=== PATIENT | female | born 1975 | race Hispanic/Latino ===

== ENCOUNTER 2017-06-23 14:02 | Emergency (ER) | payer OTHER ==
[2017-06-23 14:02] VITALS: BMI 45.6
[2017-06-23 14:11] VITALS: TEMP 98.5
--- NOTE | 2017-06-23 14:18 | ED PDOC ---
Arrival/HPI - General Chief Complaint: Back Pain Time Seen by Provider: 06/23/17 14:17 Historian: Patient - History of Present Illness Narrative History of Present Illness (Text): 06/23/17 14:17 42 y/o female, pmh including asthma/dm/thyroid disease, nkda, c/o lower back pain x 2 days with no fall or trauma. Aching pain, aggravated by position and movement, no pain medication taken at home, no urinary symptoms, no hematuria or flank pain, no nausea or vomiting, no fever or chills, no night sweat, no other medical or psychological complaints. Past Medical History - Provider Review Nursing Documentation Reviewed: Yes - Infectious Disease Hx of Infectious Diseases: None - Tetanus Immunization Tetanus Immunization: Unknown - Cardiac Hx Cardiac Disorders: Yes Hx Hypertension: Yes Hx Peripheral Edema: Yes - Pulmonary Hx Respiratory Disorders: Yes (has nebulizer at home) Hx Asthma: Yes Hx Bronchitis: Yes - Neurological Hx Neurological Disorder: No - HEENT Hx HEENT Disorder: Yes (wear rx glassess) - Renal Hx Renal Disorder: No - Endocrine/Metabolic Hx Diabetes Mellitus Type 2: No Hx Hypothyroidism: Yes - Hematological/Oncological Hx Blood Disorders: Yes Hx Anemia: Yes - Integumentary Hx Dermatological Disorder: Yes Hx Cellulitis: Yes (legs) - Musculoskeletal/Rheumatological Hx Musculoskeletal Disorders: Yes Hx Fractures: Yes (r ankle) - Gastrointestinal Hx Gastrointestinal Disorders: No - Genitourinary/Gynecological Hx Genitourinary Disorders: Yes (ELECTIVE ,D&C) - Psychiatric Hx Psychophysiologic Disorder: No Hx Anxiety: No Hx Bipolar Disorder: No Hx Depression: No Hx Emotional Abuse: No Hx Hallucinations: No Hx Panic Disorder: No Hx Post Traumatic Stress Disorder: No Hx Psychosis: No Hx Physical Abuse: No Hx Schizophrenia: No Hx Sexual Abuse: No Hx Substance Use: Yes (hx heroin use) - Past Surgical History Past Surgical History: Non-Contributing - Surgical History Other/Comment: Nose surgery - Anesthesia Hx Anesthesia: Yes Hx Anesthesia Reactions: No Hx Malignant Hyperthermia: No - Suicidal Assessment Feels Threatened In Home Enviroment: No Family/Social History - Physician Review Nursing Documentation Reviewed: Yes Family/Social History: Unknown Family HX Smoking Status: Heavy Smoker > 10 Cigarettes Daily Hx Alcohol Use: No Hx Substance Use: Yes (hx heroin use) Substance used: clean 3.5 years Hx Substance Use Treatment: No Allergies/Home Meds Allergies/Adverse Reactions: Allergies No Known Allergies Allergy (Verified 12/24/16 13:51) Home Medications: Home Meds Medication Instructions Recorded Confirmed Gabapentin [Neurontin] 300 mg PO BID 12/24/16 06/23/17 Levothyroxine [Synthroid] 150 mcg PO DAILY 12/24/16 06/23/17 Review of Systems - Review of Systems Constitutional: absent: Fatigue, Fevers Eyes: absent: Vision Changes ENT: absent: Hearing Changes Respiratory: absent: SOB, Cough Cardiovascular: absent: Chest Pain Gastrointestinal: absent: Abdominal Pain, Vomiting Musculoskeletal: Back Pain. absent: Arthralgias, Neck Pain, Joint Swelling, Myalgias Skin: absent: Rash, Pruritis Neurological: absent: Headache, Dizziness Physical Exam Vital Signs Reviewed: Yes Vital Signs Temp Pulse Resp BP Pulse Ox 06/23/17 16:40 75 18 122/80 97 06/23/17 16:39 79 18 118/79 95 06/23/17 15:36 95 06/23/17 15:16 83 17 120/84 92 L 06/23/17 14:11 98.5 F 88 16 118/86 93 L Temperature: Afebrile Blood Pressure: Normal Pulse: Regular Respiratory Rate: Normal Appearance: Positive for: Well-Appearing, Non-Toxic Pain Distress: Moderate Mental Status: Positive for: Alert and Oriented X 3 - Systems Exam Head: Present: Atraumatic, Normocephalic Pupils: Present: PERRL Extroacular Muscles: Present: EOMI Conjunctiva: Present: Normal Mouth: Present: Moist Mucous Membranes Pharnyx: Present: Normal. No: ERYTHEMA, EXUDATE, TONSILS ENLARGED Neck: Present: Normal Range of Motion. No: MIDLINE TENDERNESS Respiratory/Chest: Present: Clear to Auscultation, Good Air Exchange. No: Respiratory Distress, Accessory Muscle Use Cardiovascular: Present: Regular Rate and Rhythm, Normal S1, S2. No: Murmurs Abdomen: Present: Normal Bowel Sounds. No: Tenderness, Distention, Peritoneal Signs Back: Present: Normal Inspection, Other (Thoracic to LS spine: +spasm noted on the rt. paraspinal of lower thoracic and upper lumbar region, no midline tenderness or step off, FROM without limitation, sensation intact, motor 5/5, no saddling gait. ). No: CVA Tenderness, Midline Tenderness, Pain with Leg Raise, Decubitus Ulcer Upper Extremity: Present: Normal Inspection. No: Cyanosis, Edema Lower Extremity: Present: Normal Inspection. No: Edema Neurological: Present: GCS=15, Speech Normal, Motor Func Grossly Intact, Gait Normal, Memory Normal Skin: Present: Warm, Dry, Normal Color. No: Rashes Psychiatric: Present: Alert, Oriented x 3, Normal Insight, Normal Concentration Medical Decision Making ED Course and Treatment: 06/23/17 14:17 -ua -Room air saturation is low, no cardiopulmonary complaints and not taking deep breath with poor positioning due to the back movement, will recheck -Pt. is is not a candidate for the PERC criteria -Based on the Well's criteria: 1.5 points Low risk group: 1.3% chance of PE in an ED population. Another study assigned scores 4 as PE Unlikely and had a 3% incidence of PE. -toradol/lidoderm as patient refused narcotics. -Clinically suspecting the DVT or PE is low as the pain is positional, will treat the pain and reassess 06/23/17 17:08 -I explained to the patient to return to the ER for any new or worsening signs or symptoms. I have all the answers for the patient and she was given the opportunities to ask question as well. -UA show +UTI, no cva tenderness or pelvic pain. -Pt. is vitally stable. -Pain well controlled and resolved with the NSAID as clinically this is unlikely PE, expressed my concern with the patient as well which she doesn't think this is PE, and there is no leg swelling, wants to be discharged home to see her own pmd DR. Jacobo tomorrow, request to be discharged home, will discharge home since the room air saturation is within normal limit when standing up on room air with no cardiopulmonary/neurological complaints. -Discharge home with mobic, flexeril, macrobid, lidoderm patch, follow up with your own pmd within 2 days, return to the ER for any new or worsening signs or symptoms. - Lab Interpretations Lab Results: Lab Results 06/23/17 14:30: Urine Color Yellow, Urine Appearance Sl cloudy, Urine pH 7.0, Ur Specific [place] 1.020, Urine Protein Trace H, Urine Glucose (UA) Negative, Urine Ketones Trace H, Urine Blood Negative, Urine Nitrate Negative, Urine Bilirubin Negative, Urine Urobilinogen 1.0 H, Ur Leukocyte Esterase Trace H, Urine RBC 0 - 2, Urine WBC 0 - 2, Ur Epithelial Cells 10 - 12, Urine Bacteria Mod, Urine HCG, Qual Negative I have reviewed the lab results: Yes Interpretation: Abnormal lab values (+UTI) - Medication Orders Current Medication Orders: Discontinued Medications Cyclobenzaprine HCl (Flexeril) 10 mg PO STAT STA Stop: 06/23/17 14:51 Last Admin: 06/23/17 15:09 Dose: 10 mg Ketorolac Tromethamine (Toradol) 60 mg IM STAT STA Stop: 06/23/17 14:51 Last Admin: 06/23/17 15:09 Dose: 60 mg Lidocaine (Lidoderm) 1 ea TD DAILY HENNA Last Admin: 06/23/17 15:09 Dose: 1 ea - PA / MANAGER FLOOR / Resident Statement / has reviewed & agrees with the documentation as recorded. Disposition/Present on Arrival - Present on Arrival Any Indicators Present on Arrival: No History of DVT/PE: Yes History of Uncontrolled Diabetes: No Urinary Catheter: No History of Decub. Ulcer: No History Surgical Site Infection Following: None - Disposition Have Diagnosis and Disposition been Completed?: Yes Diagnosis: Back spasm, UTI (urinary tract infection) Disposition: HOME/ ROUTINE Disposition Time: 15:04 Patient Plan: Discharge Condition: GOOD Additional Instructions: -Discharge home with mobic, flexeril, macrobid, lidoderm patch, follow up with your own pmd within 2 days, return to the ER for any new or worsening signs or symptoms. Prescriptions: Cyclobenzaprine [Cyclobenzaprine HCl] 10 mg PO TID PRN #30 tab PRN Reason: Other Lidocaine 5% [Lidoderm] 1 patch TOP DAILY #14 patch Meloxicam [Mobic] 15 mg PO DAILY PRN #14 tab PRN Reason: Other Nitrofurantoin Macrocrystals [Macrobid] 100 mg PO BID #14 cap Referrals: [facility] Graciela Waddell, [Non-Staff] - Follow up with primary Dejah Yu MD [Staff Provider] - Follow up with primary [facility] at [facility] [place], [place] [Outside] - Follow up with primary Forms: [employer] (Maltese), WORK NOTE
[2017-06-23 14:37] LABS: URINE BILIRUBIN NEGATIVE (NEGATIVE); URINE BLOOD NEGATIVE (NEGATIVE); URINE GLUCOSE (UA) NEGATIVE (NEGATIVE); URINE LEUKOCYTE ESTERASE TRACE Leu/uL (NEGATIVE); URINE NITRATE NEGATIVE (NEGATIVE); URINE PROTEIN TRACE mg/dL (<30 mg/dL)
[2017-06-23 14:48] LABS: URINE APPEARANCE SL CLOUDY (CLEAR); URINE COLOR YELLOW (YELLOW); URINE RBC 0 - 2 /hpf (0-2); URINE WBC 0 - 2 /hpf (0-6)
[2017-06-23 14:49] LABS: URINE BACTERIA MOD (NEG)
[2017-06-23] MEDS ORDERED: Lidocaine 5% Patch TD SCH (15:00)
[2017-06-23 15:11] LABS: HCG,QUALITATIVE URINE NEGATIVE (NEGATIVE)
[2017-06-23 16:40] VITALS: RESP 18
[2017-06-23 16:58] VITALS: BP 122/80; PULSE 75; O2SAT 97
== END 2017-06-23 17:08 | disposition home or self-care (01) ==
LOC: ED 14:02
DX: N39.0 Urinary tract infection, site not specified (principal); M62.830 Muscle spasm of back; I10 Essential (primary) hypertension; E03.9 Hypothyroidism, unspecified
CPT/HCPCS: 81001; 84703; 87086; 96372; 99285; J1885

== ENCOUNTER 2018-07-04 18:50 | Observation (INO) | payer MEDICAID ==
[2018-07-04 18:51] VITALS: BMI 47.0
--- NOTE | 2018-07-04 19:29 | ED PDOC ---
Arrival/HPI - General Historian: Patient - History of Present Illness Time/Duration: < week Symptom Onset: Gradual Symptom Course: Unchanged, Worsening Quality: Aching, Burning Activities at Onset: Rest Context: Exertion <Burak Daugherty - Last Filed: 07/04/18 22:02> <Manny Hopkins - Last Filed: 07/04/18 22:04> - General Chief Complaint: Lower Extremity Problem/Injury Time Seen by Provider: 07/04/18 19:11 - History of Present Illness Narrative History of Present Illness (Text): 07/04/18 19:28 Patient is a 43 year old female with PMH of asthma, cellulitis, hypothyroidism, PVD, WAQAR, and [place] [facility] [place] who presents to the ED with a red rash on the distal left lower extremity, from the calf down to the ankle. Patient states she first noticed swelling in her feet about a week ago and her rash developed 2 days ago. Patient states her leg looks the same as it did when she was diagnosed with cellulitis in the past. Patient took her prescribed Lasix 40mg once daily to try to alleviate the swelling and redness in her leg but the lasix has not helped. Patient admitted to chills, dyspnea on exertion (which is chronic), swelling and warmth in her left lower leg. Patient denied nausea, vomiting, dyspnea at rest, or chest pain. Patient denies trauma to the leg or recent travel but admits to sitting a lot during the day. (Burak Daugherty) Past Medical History - Provider Review Nursing Documentation Reviewed: Yes - Travel History Have you recently traveled outside [place] w/in the past 3 mons?: No - Infectious Disease Hx of Infectious Diseases: None - Tetanus Immunization Tetanus Immunization: Unknown - Cardiac Hx Hypertension: Yes Hx Peripheral Edema: Yes - Pulmonary Hx Asthma: Yes Hx Bronchitis: Yes - Neurological HX Cerebrovascular Accident: No Hx Seizures: No - HEENT Hx HEENT Disorder: Yes (wear rx glassess) - Renal Hx Renal Disorder: No - Endocrine/Metabolic Hx Hypothyroidism: Yes - Hematological/Oncological Hx Anemia: Yes - Integumentary Hx Dermatological Disorder: Yes Hx Cellulitis: Yes (legs) - Musculoskeletal/Rheumatological Hx Falls: No Hx Fractures: Yes (r ankle) - Gastrointestinal Hx Gastrointestinal Disorders: No - Genitourinary/Gynecological Hx Sexually Transmitted Diseases: No - Psychiatric Hx Anxiety: No Hx Bipolar Disorder: No Hx Depression: No Hx Post Traumatic Stress Disorder: No Hx Schizophrenia: No Hx Substance Use: Yes - Past Surgical History Past Surgical History: Non-Contributing - Surgical History Other/Comment: Nose surgery - Anesthesia Hx Anesthesia: Yes Hx Anesthesia Reactions: No Hx Malignant Hyperthermia: No - Suicidal Assessment Feels Threatened In Home Enviroment: No <Burak Daugherty - Last Filed: 07/04/18 22:02> Family/Social History - Physician Review Nursing Documentation Reviewed: Yes Family/Social History: CVA/TIA (maternal grandmother), Hypertension (father), CAD/[place] (father) Smoking Status: Heavy Smoker > 10 Cigarettes Daily Hx Alcohol Use: No Hx Substance Use: Yes Substance used: clean 3.5 years Hx Substance Use Treatment: No <Burak Daugherty - Last Filed: 07/04/18 22:02> Allergies/Home Meds <Burak Daugherty - Last Filed: 07/04/18 22:02> <Manny Hopkins - Last Filed: 07/04/18 22:04> Allergies/Adverse Reactions: Allergies No Known Allergies Allergy (Verified 05/16/18 16:31) Home Medications: Home Meds Medication Instructions Recorded Confirmed Gabapentin [Neurontin] 300 mg PO TID 12/24/16 05/16/18 Levothyroxine [Synthroid] 150 mcg PO DAILY 12/24/16 05/16/18 Furosemide [Lasix] 40 mg PO DAILY 05/16/18 05/16/18 Review of Systems - Physician Review All systems were reviewed & negative as marked: Yes - Review of Systems Constitutional: absent: Fevers, Night Sweats Eyes: absent: Vision Changes ENT: absent: Sore Throat, Rhinorrhea Respiratory: absent: SOB, Cough, Sputum, Wheezing Cardiovascular: Edema, PEPPER. absent: Chest Pain Gastrointestinal: absent: Abdominal Pain, Nausea, Vomiting Genitourinary Female: absent: Dysuria, Frequency Musculoskeletal: absent: Arthralgias Skin: Rash, Cellulitis. absent: Pruritis Neurological: absent: Headache, Dizziness Endocrine: absent: Diaphoresis Hemo/Lymphatic: absent: Adenopathy Psychiatric: absent: Anxiety, Depression <Burak Daugherty - Last Filed: 07/04/18 22:02> Physical Exam Vital Signs Reviewed: Yes Temperature: Afebrile Blood Pressure: Normal Pulse: Regular Respiratory Rate: Normal Appearance: Positive for: Non-Toxic, Comfortable Pain Distress: Mild Mental Status: Positive for: Alert and Oriented X 3 - Systems Exam Head: Present: Atraumatic, Normocephalic Pupils: Present: PERRL Extroacular Muscles: Present: EOMI Conjunctiva: Present: Normal Ears: Present: Normal Mouth: Present: Moist Mucous Membranes Pharnyx: Present: Other (hx uvulopalatopharyngoplasty for treatment of WAQAR). No : ERYTHEMA, EXUDATE Nose (External): Present: Atraumatic Neck: Present: Normal Range of Motion, JVD, Other (thick neck consistent with WAQAR) Respiratory/Chest: Present: Clear to Auscultation. No: Wheezes, Rales, Rhonchi Cardiovascular: Present: Regular Rate and Rhythm, Normal S1, S2. No: Murmurs, Rub, Gallop Abdomen: No: Tenderness, Rebound, Guarding Upper Extremity: Present: Normal Inspection. No: Cyanosis, Edema Lower Extremity: Present: Edema, NORMAL PULSES, Normal ROM, Erythema ( erythematous patch in LLE consistent with cellulitis, warm to touch). No: CALF TENDERNESS, Cyanosis, Philomena's Sign Neurological: Present: Speech Normal Skin: Present: Warm, Dry, Rashes (erythematous, warm patch on LLE consistent with cellulitis) Psychiatric: Present: Alert, Oriented x 3 <Burak Daugherty - Last Filed: 07/04/18 22:02> Vital Signs Temp Pulse Resp BP Pulse Ox 07/04/18 18:51 98.7 F 95 H 18 146/75 93 L Medical Decision Making - Lab Interpretations I have reviewed the lab results: Yes Interpretation: All labs normal - RAD Interpretation Energy Projects Lead: ED Physician <Burak Daugherty - Last Filed: 07/04/18 22:02> <Manny Hopkins - Last Filed: 07/04/18 22:04> ED Course and Treatment: 07/04/18 19:44 -Patient has a history of cellulitis in the LLE and is presenting with erythematous patch consistent with cellulitis -Will get CBC, CMP, blood and urine cx, VBG, CXR -Will also get bilateral LE US to r/o DVT 07/04/18 19:53 -LE US completed and negative for DVT 07/04/18 21:23 -Patient reports the pain has significantly improved s/p toradol 15 mg IM 07/04/18 21:30 -Patient has been admitted for cellulitis in the past -Spoke with Dr. Jacobo who agreed to admission 07/04/18 21:45 -Dose of Rocephin and vancomycin given in ED (Burak Daugherty) Patient Seen With Resident: In agreement with resident note. Patient was seen and evaluated with resident, came up with plan and treatment together. 43 year old female presents complaining of a red rash on the distal left lower extremity from the calf down to the ankle. Patient was diagnosed with cellulites in the past. Plan: -- VBG -- Labs -- Chest X-ray -- Rocephin, Tylenol, Vancomycin -- Blood Culture, Urine Culture -- Urinalysis -- US Duplex Lower Extrem. (Manny Hopkins) - Lab Interpretations Lab Results: 07/04/18 20:40 07/04/18 20:40 Lab Results 07/04/18 20:40: Urine Color Yellow, Urine Appearance Clear, Urine pH 6.0, Ur Specific [place] 1.025, Urine Protein Negative, Urine Glucose (UA) Negative, Urine Ketones Negative, Urine Blood Negative, Urine Nitrate Negative, Urine Bilirubin Negative, Urine Urobilinogen 1.0 H, Ur Leukocyte Esterase Negative 07/04/18 20:40: Sodium 141, Chloride 99, Potassium 3.8, Carbon Dioxide 31, Anion Gap 15, BUN 14, Creatinine 0.5 L, Est GFR ( Amer) > 60, Est GFR ( Non-Af Amer) > 60, Random Glucose 174 H, Calcium 9.4, Phosphorus 3.9, Magnesium 1.9, Total Bilirubin 0.3, AST 23, ALT 20, Alkaline Phosphatase 98, NT-Pro-B Natriuret Pep 25.8, Total Protein 8.0, Albumin 4.0, Globulin 4.0, Albumin/ Globulin Ratio 1.0 L 07/04/18 20:40: pO2 37, VBG pH 7.36, VBG pCO2 58.0, VBG HCO3 32.8 H, VBG Total CO2 34.6 H, VBG O2 Sat (Calc) 77.3 H, VBG Base Excess 5.6 H, VBG Potassium 3.7, Sodium 139.0, Chloride 102.0, Glucose 175 H, Lactate 1.7, FiO2 21.0, Venous Blood Potassium 3.7 07/04/18 20:40: PT 11.6, INR 1.02, APTT 25.2 07/04/18 20:40: WBC 10.2, RBC 5.27, Hgb 14.9, Hct 43.8, MCV 83.1, MCH 28.3, MCHC 34.0, RDW 14.5, Plt Count 334, MPV 9.4, Gran % 62.5, Lymph % (Auto) 28.0, [place] % (Auto) 6.4 H, Eos % (Auto) 2.8, Baso % (Auto) 0.3, Gran # 6.36, Lymph # ( Auto) 2.9, [place] # (Auto) 0.7 H, Eos # (Auto) 0.3, Baso # (Auto) 0.03 07/04/18 20:40: TSH 3rd Generation 2.86 - RAD Interpretation Narrative RAD Interpretations (Text): 07/04/18 21:36 CXR without acute findings, bilateral LE US negative for DVT (Burak Daugherty) Radiology Orders: 07/04/18 19:23 CHEST PORTABLE [RAD] Stat 07/04/18 19:24 DUPLEX LOWER EXTRM VEIN BILAT [US] Urgent - Medication Orders Current Medication Orders: Acetaminophen (Tylenol 325mg Tab) 650 mg PO Q4H PRN PRN Reason: Pain, Mild (1-3) Vancomycin HCl (Vancomycin 1gm) 1 gm in 250 mls @ 167 mls/hr IVPB ONCE ONE PRN Reason: Protocol Stop: 07/04/18 22:58 Ceftriaxone Sodium (Rocephin 1 Gram Ivpb) 1 gm in 100 mls @ 100 mls/hr IVPB ONCE ONE PRN Reason: Protocol Stop: 07/04/18 22:27 Last Admin: 07/04/18 21:50 Dose: 100 mls/hr eMAR Start Stop Document 07/04/18 21:50 AD (Rec: 07/04/18 21:50 AD [email or web address] Intravenous Solution Start Date 07/04/18 Start Time 21:50 Discontinued Medications Acetaminophen (Tylenol 325mg Tab) 650 mg PO ONCE ONE Stop: 07/04/18 19:26 Last Admin: 07/04/18 19:52 Dose: Not Given Non-Admin Reason: Patient Refused MAR Pain/Vitals Document 07/04/18 19:52 EQ (Rec: 07/04/18 19:52 EQ [id number]) Pain Reassessment Is This A Pain ReAssessment? No Sleep Is patient sleeping during reassessment? No Presence of Pain Presence of Pain Yes Ketorolac Tromethamine (Toradol) 15 mg IM STAT STA Stop: 07/04/18 20:38 Last Admin: 07/04/18 20:46 Dose: 15 mg MAR Pain Assessment Document 07/04/18 20:46 AD (Rec: 07/04/18 20:46 AD [email or web address] Pain Reassessment Is this a pain reassessment? No Presence of Pain Presence of Pain Yes IM Administration Charges Document 07/04/18 20:46 AD (Rec: 07/04/18 20:46 AD [email or web address] Charges for Administration # of IM Administrations 1 <Burak Daugherty - Last Filed: 07/04/18 22:02> - PA / DATABASE ADMINISTRATION PROJECT MANAGER / Resident Statement MD/DO has reviewed & agrees with the documentation as recorded. MD/DO has examined the patient and agrees with the treatment plan. - Scribe Statement The provider has reviewed the documentation as recorded by the Scribe <Manny Hopkins - Last Filed: 07/04/18 22:04> - Scribe Statement Scribe Attestation: Collins Aguirre MD Scribe Attestation: All medical record entries made by the Scribe were at my direction and personally dictated by me. I have reviewed the chart and agree that the record accurately reflects my personal performance of the history, physical exam, medical decision making, and the department course for this patient. I have also personally directed, reviewed, and agree with the discharge instructions and disposition. (Manny Hopkins) Disposition/Present on Arrival - Present on Arrival Any Indicators Present on Arrival: Yes History of DVT/PE: Yes History of Uncontrolled Diabetes: No Urinary Catheter: No History of Decub. Ulcer: No History Surgical Site Infection Following: None - Disposition Have Diagnosis and Disposition been Completed?: Yes Disposition Time: 21:37 Patient Plan: Admission <Burak Daugherty - Last Filed: 07/04/18 22:02> <Manny Hopkins - Last Filed: 07/04/18 22:04> - Disposition Diagnosis: Cellulitis, Cellulitis of left leg Disposition: HOSPITALIZED Patient Problems: Current Active Problems Problem Status Onset Cellulitis Acute Cellulitis of left leg Acute Condition: FAIR
[2018-07-04 20:56] LABS: URINE BILIRUBIN NEGATIVE (NEGATIVE); URINE BLOOD NEGATIVE (NEGATIVE); URINE GLUCOSE (UA) NEGATIVE (NEGATIVE); URINE LEUKOCYTE ESTERASE NEGATIVE Leu/uL (NEGATIVE); URINE PROTEIN NEGATIVE mg/dL (<30 mg/dL)
[2018-07-04 20:57] LABS: URINE APPEARANCE CLEAR (CLEAR); URINE COLOR YELLOW (YELLOW); VENOUS BLOOD GAS BASE EXCESS 5.6 mmol/L (0.0-2.0); VENOUS BLOOD GAS PO2 37 mm/Hg (30-55); VENOUS BLOOD PH 7.36 (7.32-7.43)
[2018-07-04 20:58] LABS: BASO # 0.03 K/mm3 (0.0-2.0); BASO % 0.3 % (0.0-3.0); EOS # 0.3 (0.0-0.7); EOS % 2.8 % (1.5-5.0); GRAN # 6.36 (1.4-6.5); GRAN % 62.5 % (50.0-68.0); HEMOGLOBIN 14.9 g/dL (12.0-16.0); LYMPH # 2.9 (1.2-3.4); MEAN CELL VOLUME 83.1 fl (80.0-105.0); MEAN CORPUSCULAR HEMOGLOBIN 28.3 pg (25.0-35.0); MEAN PLATELET VOLUME 9.4 fl (7.0-11.0); MONO # 0.7 (0.1-0.6); MONO % 6.4 % (1.0-6.0); RBC 5.27 10^6/uL (3.5-6.1); RED CELL DISTRIBUTION WIDTH 14.5 % (11.5-14.5); WHITE BLOOD COUNT 10.2 10^3/ul (4.5-11.0)
[2018-07-04 21:06] LABS: ALT/SGPT 20 U/L (7-56); AST/SGOT 23 U/L (14-36); BLOOD UREA NITROGEN 14 mg/dL (7-21); CALCIUM 9.4 mg/dL (8.4-10.5); GFR AFRICAN-AMERICAN > 60; GFR NON-AFRICAN AMERICAN > 60
[2018-07-04 21:07] LABS: INR 1.02; PARTIAL THROMBOPLASTIN TIME 25.2 Seconds (25.1-36.5); PROTHROMBIN TIME 11.6 SECONDS (9.4-12.5)
[2018-07-04 21:13] LABS: B-TYPE NATRIURETIC PEPTIDE 25.8 pg/mL (0-450)
[2018-07-04] MEDS ORDERED: Vancomycin 1gm in NS 250ml 1 GM/250 ML BAG IVPB ONE (21:29)
[2018-07-04] MEDS ORDERED: cefTRIAXone 1 gm 1 GM/100 ML BAG IVPB ONE (21:41)
[2018-07-05] MEDS ORDERED: Albuterol HFA 90 mcg/actuation (8 g) INH PRN (08:25)
[2018-07-05] MEDS ORDERED: Albuterol 0.083% Inhal Sol (2.5 mg/3 mL) UD IH PRN (08:30)
[2018-07-05] MEDS: Vancomycin 1gm in NS 250ml 1 GM/250 ML BAG IVPB SCH ×2 (08:49→21:12)
[2018-07-05] MEDS: Levothyroxine 50 MCG TAB PO SCH (09:32)
--- NOTE | 2018-07-05 10:57 | RAD ---
Date of service: 07/04/2018 HISTORY: Dyspnea on exertion COMPARISON: No prior. FINDINGS: LUNGS: No active pulmonary disease. PLEURA: No significant pleural effusion identified, no pneumothorax apparent. CARDIOVASCULAR: Normal. OSSEOUS STRUCTURES: No significant abnormalities. VISUALIZED UPPER ABDOMEN: Normal. OTHER FINDINGS: None. IMPRESSION: No active disease.
--- NOTE | 2018-07-05 11:31 | CON ---
Copied To: Pernell Jeter MD Attending MD: Pernell Jeter MD DATE: 07/05/2018 LOCATION: The patient is seen earlier today in 568, bed 2. CHIEF COMPLAINT: Lower extremity edema and erythema x1 week duration. HISTORY OF PRESENT ILLNESS: This is a 43-year-old female with past medical history significant for morbid obesity with history of active intravenous drug abuse in the past, asthma, hypothyroidism, anemia, hepatitis C and history of coronary artery disease, diabetes and hypertension, who is admitted through the emergency room yesterday, was seen by Dr. Manny Hopkins in emergency room because of left lower extremity x1 week duration. She denies any fevers, any chills. No nausea. No vomiting. She does admit to lower extremity edema. No abdominal pain, diarrhea or constipation. No dysuria or frequency. No fevers and chills. PAST MEDICAL HISTORY: Significant for intravenous drug abuse, morbid obesity with a BMI of over 50 and hypertension, diabetes and hypothyroidism and anemia, coronary artery disease. PAST SURGICAL HISTORY: Significant for a surgery done in her mouth years ago, she states and she is not quite sure what. ALLERGIES: THE PATIENT HAS NO KNOWN ALLERGIES. MEDICATIONS AT HOME: Include Synthroid and Lasix and gabapentin. PHYSICAL EXAMINATION: GENERAL: On exam, the patient is in bed, answering questions appropriately. VITAL SIGNS: Temperature of 98.7 and blood pressure is 145/100, respiratory rate of 18, heart rate of 95. HEENT: Examination of HEENT is unremarkable. NECK: Supple. LUNGS: Have decreased breath sounds. HEART: Normal S1, S2. ABDOMEN: Soft, nontender. No organomegaly. No rebound. No guarding. No masses. EXTREMITIES: On examination, the left ankle has erythema. No break in the skin. There is edema. It is warm to touch. No discharge. The pulses are intact. LABORATORY DATA: Laboratory examination reveals a white count of 10,000, hemoglobin of 14, platelets of 334. Chemistries reveal a BUN of 14, creatinine of 0.5 and the urinalysis is noted to be negative. The patient had a chest x-ray, the results are not available. Lower extremity ultrasound, the results are not available. The patient had an HIV test in 2015, which was negative. She is positive for hepatitis C with hepatitis C RNA that was elevated in 2015. ASSESSMENT AND PLAN: A 43-year-old female with morbid obesity with a body mass index of 47, diabetes mellitus, hypertension, asthma, history of intravenous drug abuse, history of hepatitis C, anemia, hypothyroidism, coronary artery disease, admitted now with a left ankle cellulitis. We will treat the patient with vancomycin and Maxipime. She is denying any recent intravenous drug abuse. We will also repeat the human immunodeficiency virus test. We will make further recommendations pending clinical response. Pernell Jeter MD
--- NOTE | 2018-07-05 11:51 | HP ---
Copied To: Ismael Jacobo DO Attending MD: Ismael Jacobo DO HISTORY OF PRESENT ILLNESS: I see her resting comfortably in bed. She is here with a cellulitis, lower extremity injury pain and also she just got out of the [facility] to get off the heroin. She is a 43-year-old morbidly obese female presents with red rash in the distal left lower extremity from the calf down to the ankles. I discussed it with the Infectious Disease doctor. Underwent an MRI of the left ankle to make sure there is no osteo. She has a history of IV heroin abuse. She was on methadone, I do not think she is on it now. She did not ask for it. I gave her some Toradol for pain. It did look cellulitis. It is also very swollen. I will give her Lasix 40 mg to try and get rid of some of the excess edema and get Cardiology involved. PAST MEDICAL HISTORY: She has a past medical history of heroin abuse, asthma, cellulitis, hypothyroidism, peripheral vascular disease, obstructive sleep apnea, DVT. She has a distal left lower extremity redness. She has bronchitis and asthma. She wears glasses, hypothyroid, anemia. She had right ankle fractures, cellulitis in the past of the legs. No anxiety. No schizophrenia. There is substance abuse for many years. PAST SURGICAL HISTORY: She had no surgery. FAMILY HISTORY: There is CVA and TIA in the maternal grandmother, hypertension in the father, CAD and PR in the father. SOCIAL HISTORY: She still smokes cigarettes. No alcohol. She was doing heroin and now she is just came out of IV heroin, she just came out of detox at [facility]. ALLERGIES: SHE HAS NO KNOWN DRUG ALLERGIES. MEDICATIONS: She is on Neurontin, Synthroid, Lasix. I do not think she is taking the Lasix. She is very swollen. REVIEW OF SYSTEMS: No fevers or night sweats. No vision changes. No hearing issues. No sore throat. No rhinorrhea. No shortness of breath or cough, sputum or wheezing. There is swelling. There is dyspnea on exertion, but no chest pain. No abdominal pain, nausea, vomiting, constipation, diarrhea. She urinates okay. She does have pain everywhere. There is a rash and cellulitis of the left leg. No headache or dizziness. No sweating. No adenopathy that she knows of. No anxiety or depression. PHYSICAL EXAMINATION: VITAL SIGNS: She has a 98.7 temp, 95 pulse, 18 respiratory rate, 146/75 blood pressure, 93% O2 sat on room air. HEENT: Head is atraumatic, normocephalic. She is very uncomfortable with pain. Extraocular muscles are intact. Pupils equal, reactive to light. Throat is moist. NECK: Supple. HEART: Regular rate. Normal S1 and S2. LUNGS: Decreased breath sounds bilaterally, but no wheezes, rhonchi or rales. ABDOMEN: Soft, morbidly obese, nontender. Positive bowel sounds. No guarding. No rebound. No CVA tenderness. EXTREMITIES: The lower extremity, the left lower extremity is consistent with cellulitis, warm to touch, red, inflamed and tender. NEUROLOGIC: She is alert and oriented x3. No apparent anxiety. LYMPHATICS: No palpable lymphadenopathy. Thyroid is midline. LABORATORY DATA: She has multiple tests done. She is currently on Desyrel, Flexeril, Maxipime, Neurontin, Synthroid, Toradol for pain, Tylenol, vancomycin IV and Ventolin. She has a white count of 10.2, hemoglobin of 14.9, hematocrit 43.8, platelets are 334. INR is 1.02. She has a 141 sodium, potassium 3.8, BUN 14, creatinine 0.5, GFR is greater than 60, sugar is 174. She will be on some insulin coverage. She has calcium 9.4, phosphorous 3.9, magnesium 1.9, total bili is 0.3, AST is 23, ALT is 20, alk phos 98, total protein is 8, BNP is 25, albumin is 4, globulin 4, TSH is 2.86. Urine was clean. IMPRESSION: So she has a left leg cellulitis. She has got pain. Status post detoxification from heroin. I will change her to an inpatient. Discussed with Infectious Disease. We will get an MRI of the left leg. Ismael Jacobo DO
--- NOTE | 2018-07-05 11:57 | US ---
HISTORY: Leg pain and swelling. Evaluate for DVT PHYSICIAN(S): Massimo Dash MD. TECHNIQUE: Duplex sonography and color-flow Doppler with graded compression were used to evaluate the deep venous systems of both lower extremities. The exam is somewhat limited by edema and body habitus. FINDINGS: The visualized deep venous systems of both lower extremities are sonographically normal and compressible. Normal wave forms and augmentation are seen. There is no sonographic evidence for deep venous thrombosis in the visualized segments of both lower extremities. IMPRESSION: No sonographic evidence for deep venous thrombosis in the visualized segments of both lower extremities. Limited study.
[2018-07-05] MEDS: Insulin Reg-MEDIUM-Coverage SC SCH ×3 (12:14→21:47)
[2018-07-05] MEDS: Cefepime 1gm in NS 100ml 1 GM/100 ML BAG IVPB SCH ×2 (14:05→21:14)
[2018-07-05] MEDS ORDERED: cefTRIAXone 1 gm 1 GM/100 ML BAG IVPB ONE (21:28)
[2018-07-06] MEDS: Cefepime 1gm in NS 100ml 1 GM/100 ML BAG IVPB SCH (05:36)
[2018-07-06 07:33] LABS: HEMOGLOBIN 14.6 g/dL (12.0-16.0); MEAN CELL VOLUME 83.5 fl (80.0-105.0); MEAN CORPUSCULAR HGB CONC 33.5 g/dl (31.0-37.0); MEAN PLATELET VOLUME 9.3 fl (7.0-11.0); RBC 5.22 10^6/uL (3.5-6.1); RED CELL DISTRIBUTION WIDTH 14.4 % (11.5-14.5); WHITE BLOOD COUNT 10.4 10^3/ul (4.5-11.0)
[2018-07-06 07:46] LABS: ALBUMIN 3.8 g/dL (3.0-4.8); ALT/SGPT 20 U/L (7-56); AST/SGOT 18 U/L (14-36); BLOOD UREA NITROGEN 12 mg/dL (7-21); GFR AFRICAN-AMERICAN > 60; GFR NON-AFRICAN AMERICAN > 60
[2018-07-06 07:47] VITALS: PULSE 78; RESP 20; TEMP 97.9; O2SAT 96
[2018-07-06] MEDS: Insulin Reg-MEDIUM-Coverage SC SCH ×2 (08:32→11:34)
--- NOTE | 2018-07-06 10:33 | MRI ---
Date of service: 07/06/2018 PROCEDURE: MRI of the left lower extremity without contrast HISTORY: r/o osteo COMPARISON: TECHNIQUE: MRI of the left lower extremity was performed in multiple planes using multiple pulse sequences. FINDINGS: There is a moderate amount of subcutaneous edema consistent with cellulitis. There is no focal abscess. There is no marrow edema to suggest osteomyelitis. IMPRESSION: No evidence of osteomyelitis
[2018-07-06] MEDS: Vancomycin 1gm in NS 250ml 1 GM/250 ML BAG IVPB SCH (10:35)
[2018-07-06] MEDS: Levothyroxine 50 MCG TAB PO SCH (10:35)
[2018-07-06 10:39] VITALS: BP 144/93
--- NOTE | 2018-07-06 12:49 | CON ---
Copied To: Massimo Jauregui MD Attending MD: Massimo Jauregui MD DATE: 07/06/2018 HISTORY OF PRESENT ILLNESS: The patient is a 43-year-old woman, who presents with edema in the lower extremities as well as possible cellulitis of the lower extremities. The patient's past medical history includes a history of heroin injection use in which she just recently left [facility]. She has psych history in the past. No previous cardiac history. No hypertension or diabetes mellitus. SOCIAL HISTORY: The patient is active smoker. FAMILY HISTORY: She has multiple family members with cardiac disease. REVIEW OF SYSTEMS: A 14-point review of systems was reviewed in detail. No cardiac symptomatology is noted. PHYSICAL EXAMINATION: GENERAL: The patient is obese woman, in no acute distress. VITAL SIGNS: Blood pressure is 124/82, the heart rate is in the 70s. NECK: Negative JVD. LUNGS: Without rales. HEART: Reveals S1, S2. EXTREMITIES: Trace edema in the lower extremities. LABORATORY DATA: EKG shows no acute changes. The glucose is 145, hemoglobin is 14.6. Preliminary echocardiogram reveals good LV function with mild pulmonary retention. IMPRESSION: 1. Questionable cellulitis of the lower extremities. 2. Transient pedal edema. 3. Mild pulmonary hypertension. 4. History of heroin abuse. 5. Nicotine addiction. Given these findings, I have discussed with the patient about the need to stop smoking. Her heroin addiction is being treated by her detox program. There is no further cardiac workup indicated at this time. The patient needs to begin healthy lifestyle. Massimo Jauregui MD
--- NOTE | 2018-07-06 13:23 | PN ---
Copied To: Pernell Jeter MD Attending MD: Pernell Jeter MD DATE: 07/06/2018 SUBJECTIVE: The patient is in bed, in no acute distress, was seen earlier this morning in room 568, bed 2. PHYSICAL EXAMINATION: VITAL SIGNS: On exam, temperature is 98, blood pressure is 140/80, respiratory rate of 16. HEENT: Examination of HEENT is unremarkable. NECK: Supple. LUNGS: Have decreased breath sounds. HEART: Normal S1, S2. ABDOMEN: Soft, nontender. EXTREMITIES: Examination of the legs, the left leg is much improved and erythema is almost resolved. LABORATORY DATA: Laboratory examination reveals the patient had an MRI of the lower extremity, it shows no evidence of osteomyelitis. Dr. Massimo Jauregui's consultation is reviewed. ASSESSMENT AND PLAN: A 43-year-old female with morbid obesity, body mass index of 47; diabetes mellitus; hypertension; asthma; intravenous drug abuse by history, no recent use; history of hepatitis C and anemia; hypothyroidism; coronary artery disease. Admitted with a left ankle cellulitis. The patient to be discharged today on p.o. antibiotics as discussed with the patient and the patient's primary doctor, Dr. Ismael Jacobo. Pernell Jeter MD
--- NOTE | 2018-07-06 15:53 | CARD ---
APPROVED REPORT Date of service: 07/06/2018 EXAM: Two-dimensional and M-mode echocardiogram with Doppler and color Doppler. INDICATION R/O PULMONARY HTN 2D DIMENSIONS Left Atrium (2D)3.4 (1.6-4.0cm)IVSd1.0 (0.7-1.1cm) LVDd4.9 (3.9-5.9cm)PWd0.9 (0.7-1.1cm) LVDs3.2 (2.5-4.0cm)FS (%) 35.7 % LVEF (%)64.9 (>50%) M-Mode DIMENSIONS Aortic Root3.10 (2.2-3.7cm)Aortic Cusp Exc.1.80 (1.5-2.0cm) Aortic Valve AoV Peak Ynzlaefo116.0cm/Sherry Peak GR.9mmHg Mitral Valve MV E Tmodvkie43.1cm/sMV A Ikmsgled04.4cm/sE/A ratio1.3 TDI Lateral E' Peak V14.50cm/sMedial E' Peak V8.09cm/sE/Lateral E'5.9 E/Medial E'10.5 Pulmonary Valve PV Peak Ncxlpwpu765.0cm/sPV Peak Grad.5mmHg Tricuspid Valve TR Peak Feautraf250yp/sRAP IJDANOCF32adZgRX Peak Gr.25mmHg CJMW40wtLd LEFT VENTRICLE The left ventricle is normal size. There is normal left ventricular wall thickness. The left ventricular function is normal. The left ventricular ejection fraction is within the normal range. There is normal LV segmental wall motion. The left ventricular diastolic function is normal. RIGHT VENTRICLE The right ventricle is normal size. There is normal right ventricular wall thickness. The right ventricular systolic function is normal. ATRIA The left atrium size is normal. The right atrium size is normal. AORTIC VALVE The aortic valve is not well visualized. No aortic regurgitation is present. There is no aortic valvular stenosis. MITRAL VALVE The mitral valve is normal in structure. There is no mitral valve regurgitation noted. There is no mitral valve stenosis. TRICUSPID VALVE The tricuspid valve is normal in structure. There is mild tricuspid regurgitation. There is mild pulmonary hypertension. PULMONIC VALVE The pulmonary valve is normal in structure. There is no pulmonic valvular regurgitation. GREAT VESSELS The aortic root is normal in size. The ascending aorta is normal in size. The IVC is normal in size and collapses >50% with inspiration. PERICARDIAL EFFUSION There is no pericardial effusion. <Conclusion> The left ventricle is normal size. There is normal left ventricular wall thickness. The left ventricular function is normal. The left ventricular ejection fraction is within the normal range. There is normal LV segmental wall motion. The left ventricular diastolic function is normal. There is mild tricuspid regurgitation. There is mild pulmonary hypertension.
--- NOTE | 2018-07-07 08:05 | DS ---
Copied To: Ismael Jacobo DO Attending MD: Ismael Jacobo DO HISTORY OF PRESENT ILLNESS: She went down for an MRI of her left leg. She has left leg cellulitis. If MRI is negative for osteo, she will be discharged today on doxycycline 100 mg twice a day for [address] Jeter. She will continue with her other medications that she usually takes. She is going to quit smoking and take the water pill twice a day, the Lasix will now be twice a day because she has a lot of swelling and I believe, the main part of the problem. PHYSICAL EXAMINATION: VITAL SIGNS: She has 97.9 temperature, 78 pulse, 124/82 blood pressure, 20 respiratory rate, 96% O2 sat on room air. HEENT: Head is atraumatic, normocephalic. HEART: Regular rate. LUNGS: Decreased breath sounds. ABDOMEN: Soft, obese, nontender. EXTREMITIES: Much better, much less swollen, much less red. LABORATORY DATA: White count is 10.4, hemoglobin 14.6, hematocrit 43.6, platelets 284, 139 sodium, potassium 4.4, BUN is 12, creatinine 0.5, GFR is greater than 60, sugar is 145, calcium is 9, total bili is 0.4, AST is 18, ALT is 20, alk phos 89, total protein 7.5 and all the micro was normal. ASSESSMENT AND PLAN: So, hopefully we could discharge her after the MRI, if it is okay. I am hoping we could discharge her today after the MRI and she is here in observation level of care. Ismael Jacobo DO
== END 2018-07-06 12:30 | disposition home or self-care (01) ==
LOC: ED 18:50 → ERH 21:36 → 5RNO 22:29
PROVIDERS: ADMIT Family Medicine; ATTEND Family Medicine
DX: L03.116 Cellulitis of left lower limb (principal); E03.9 Hypothyroidism, unspecified; E11.51 Type 2 diabetes mellitus with diabetic peripheral angiopathy without gangrene; E66.01 Morbid (severe) obesity due to excess calories; F11.20 Opioid dependence, uncomplicated; F17.210 Nicotine dependence, cigarettes, uncomplicated; G47.33 Obstructive sleep apnea (adult) (pediatric); I10 Essential (primary) hypertension; I25.10 Atherosclerotic heart disease of native coronary artery without angina pectoris; I27.20 Pulmonary hypertension, unspecified; J45.909 Unspecified asthma, uncomplicated; Z68.42 Body mass index [BMI] 45.0-49.9, adult; D64.9 Anemia, unspecified; Z82.3 Family history of stroke; Z82.49 Family history of ischemic heart disease and other diseases of the circulatory system; Z86.19 Personal history of other infectious and parasitic diseases
CPT/HCPCS: 36415; 71045; 73718; 80053; 81003; 82803; 82948; 83735; 83880; 84100; 84443; 85025; 85027; 85610; 85730; 87040; 87086; 87389; 93306; 93970; 96372; 99285; G0378; J0692; J0696; J1885; J1940

== ENCOUNTER 2019-04-22 18:03 | Observation (INO) | payer MEDICAID ==
[2019-04-22 18:09] VITALS: BMI 53.1
[2019-04-22] MEDS ORDERED: Sodium Chloride 0.9% 1,000 ML IV STA (18:54)
[2019-04-22 19:11] LABS: BASO # 0.03 K/mm3 (0.0-2.0); BASO % 0.3 % (0.0-3.0); EOS # 0.2 (0.0-0.7); HEMOGLOBIN 14.7 g/dL (12.0-16.0); LYMPH % 25.7 % (22.0-35.0); MEAN CELL VOLUME 85.9 fl (80.0-105.0); MEAN CORPUSCULAR HGB CONC 32.6 g/dl (31.0-37.0); MEAN PLATELET VOLUME 9.8 fl (7.0-11.0); MONO # 0.5 (0.1-0.6); MONO % 4.3 % (1.0-6.0); RBC 5.25 10^6/uL (3.5-6.1); RED CELL DISTRIBUTION WIDTH 14.8 % (11.5-14.5); WHITE BLOOD COUNT 11.8 10^3/uL (4.5-11.0)
[2019-04-22 19:53] LABS: ACETAMINOPHEN < 10.0 ug/ml (10.0-20.0); ALBUMIN 3.8 g/dL (3.0-4.8); ALT/SGPT 23 U/L (7-56); AST/SGOT 25 U/L (14-36); BLOOD UREA NITROGEN 10 mg/dL (7-21); CALCIUM 8.6 mg/dL (8.4-10.5); GFR NON-AFRICAN AMERICAN > 60; SALICYLATE < 1 mg/dL (2.0-20.0)
--- NOTE | 2019-04-22 22:12 | ED PDOC ---
Arrival/HPI - General Chief Complaint: Substance Abuse Historian: Patient - History of Present Illness Narrative History of Present Illness (Text): 04/22/19 22:09 44yo morbidly obese female with past medical history of hypertension, Diabetes, hyperlipdemia, Asthma, substance abuse bib EMS for drug overdose. Patient was given 2mg of Narcan by EMS and she was intermittently alert in ED. She admitted to using 4bags of heroine today. Noted that she was found by her boyfriend. Denies SI, somatic complaint, chest pain, any other complaint. Past Medical History - Provider Review Nursing Documentation Reviewed: Yes - Infectious Disease Hx of Infectious Diseases: None - Tetanus Immunization Tetanus Immunization: Unknown - Cardiac Hx Cardiac Disorders: Yes - Pulmonary Hx Respiratory Disorders: Yes (has nebulizer at home) - Neurological HX Cerebrovascular Accident: No Hx Seizures: No - HEENT Other/Comment: history of ulviaititis with surgical repair - Renal Hx Renal Disorder: No - Endocrine/Metabolic Hx Diabetes Mellitus Type 2: No - Hematological/Oncological Hx Blood Transfusions: No Hx Blood Transfusion Reaction: No - Integumentary Other/Comment: lower ext edema - Musculoskeletal/Rheumatological Hx Unsteady Gait: Yes - Gastrointestinal Other/Comment: in the process of bariatric surgery - Genitourinary/Gynecological Hx Sexually Transmitted Diseases: No - Psychiatric Hx Emotional Abuse: No Hx Physical Abuse: No Hx Substance Use: Yes - Past Surgical History Past Surgical History: Non-Contributing - Surgical History Hx Mastectomy: No - Anesthesia Hx Anesthesia Reactions: No Hx Malignant Hyperthermia: No - Suicidal Assessment Feels Threatened In Home Enviroment: No Family/Social History - Physician Review Nursing Documentation Reviewed: Yes Family/Social History: Unknown Family HX Smoking Status: Light Smoker < 10 Cigarettes Daily Hx Alcohol Use: No Hx Substance Use: Yes Substance used: clean 3.5 years Hx Substance Use Treatment: No Allergies/Home Meds Allergies/Adverse Reactions: Allergies No Known Allergies Allergy (Verified 04/22/19 18:09) Home Medications: Home Meds Medication Instructions Recorded Confirmed Gabapentin [Neurontin] 300 mg PO TID 12/24/16 05/16/18 Levothyroxine [Synthroid] 150 mcg PO DAILY 12/24/16 05/16/18 Furosemide [Lasix] 40 mg PO DAILY 05/16/18 05/16/18 Furosemide [Lasix] 40 mg PO DAILY 06/28/18 08/11/18 Levothyroxine [Synthroid] 150 mcg PO DAILY 06/28/18 08/11/18 Pentoxifylline 400 mg PO TID 06/28/18 08/11/18 Alprazolam [Xanax] 0.5 mg PO BID PRN 08/08/18 08/11/18 Review of Systems - Physician Review All systems were reviewed & negative as marked: Yes - Review of Systems Constitutional: Normal Eyes: Normal ENT: Normal Respiratory: Normal Cardiovascular: Normal Gastrointestinal: Normal Genitourinary Female: Normal Musculoskeletal: Normal Skin: Normal Neurological: Normal Endocrine: Normal Hemo/Lymphatic: Normal Psychiatric: Other (drug overdose) Physical Exam Vital Signs Reviewed: Yes Vital Signs Temp Pulse Resp BP Pulse Ox 04/22/19 19:15 87 14 124/73 92 L 04/22/19 18:08 98.0 F 72 18 121/57 L 93 L Temperature: Afebrile Blood Pressure: Normal Pulse: Regular Respiratory Rate: Normal Appearance: Positive for: Well-Appearing, Non-Toxic, Comfortable, Other (Morbidly obese) Pain Distress: None Mental Status: Positive for: Alert and Oriented X 3, other (Drowsy) - Systems Exam Head: Present: Atraumatic, Normocephalic Pupils: Present: Pinpoint Extroacular Muscles: Present: EOMI Conjunctiva: Present: Normal Mouth: Present: Moist Mucous Membranes Neck: Present: Normal Range of Motion Respiratory/Chest: Present: Clear to Auscultation, Good Air Exchange. No: Respiratory Distress, Accessory Muscle Use Cardiovascular: Present: Regular Rate and Rhythm, Normal S1, S2. No: Murmurs Abdomen: No: Tenderness, Distention, Peritoneal Signs Back: Present: Normal Inspection Upper Extremity: Present: Normal Inspection. No: Cyanosis, Edema Lower Extremity: Present: Normal Inspection. No: Edema Neurological: Present: GCS=15, CN II-XII Intact, Speech Normal Skin: Present: Warm, Dry, Normal Color. No: Rashes Psychiatric: Present: Oriented x 3, Normal Concentration. No: Alert (Drowsy), Normal Insight (Drowsy) Medical Decision Making ED Course and Treatment: 04/24/19 01:30 Pt bib EMS for stated history Lab EKG Saline Reassess On re evaluation pt was still drowsy and sleepy. She was placed on OBS for further observation. Case was DW Dr. Jacobo and pt was admitted - Lab Interpretations Lab Results: Total Bilirubin 0.2 mg/dL (0.2-1.3) 04/22/19 18:52 AST 25 U/L (14-36) 04/22/19 18:52 ALT 23 U/L (7-56) 04/22/19 18:52 Alkaline Phosphatase 89 U/L (38-126) 04/22/19 18:52 Total Protein 7.8 g/dL (5.8-8.3) 04/22/19 18:52 Albumin 3.8 g/dL (3.0-4.8) 04/22/19 18:52 Globulin 4.0 gm/dL 04/22/19 18:52 Albumin/Globulin Ratio 1.0 (1.1-1.8) L 04/22/19 18:52 - Medication Orders Current Medication Orders: Discontinued Medications Sodium Chloride (Sodium Chloride 0.9%) 1,000 mls @ 999 mls/hr IV .Q1H1M STA Stop: 04/22/19 19:54 Last Admin: 04/22/19 19:13 Dose: 999 mls/hr eMAR Start Stop Document 04/22/19 19:13 CNR (Rec: 04/22/19 19:17 CNR [id number]) Intravenous Solution Start Date 04/22/19 Start Time 19:17 End Date 04/22/19 End time 20:17 Total Infusion Time 60 Disposition/Present on Arrival - Present on Arrival Any Indicators Present on Arrival: No History of DVT/PE: No History of Uncontrolled Diabetes: No Urinary Catheter: No History of Decub. Ulcer: No History Surgical Site Infection Following: None - Disposition Have Diagnosis and Disposition been Completed?: Yes Diagnosis: Drug dependence, Drug overdose Disposition: HOSPITALIZED Disposition Time: 18:50 Patient Plan: Admission Condition: FAIR
[2019-04-22 23:08] LABS: URINE BILIRUBIN NEGATIVE (NEGATIVE); URINE BLOOD TRACE-LYSED (NEGATIVE); URINE GLUCOSE (UA) NEGATIVE (NEGATIVE); URINE LEUKOCYTE ESTERASE NEGATIVE Leu/uL (NEGATIVE); URINE PROTEIN 30 mg/dL (<30 mg/dL); URINE UROBILINOGEN 0.2 E.U./dL (<1 E.U./dL)
[2019-04-22 23:16] LABS: URINE APPEARANCE SL CLOUDY (CLEAR); URINE COLOR YELLOW (YELLOW)
[2019-04-22 23:22] LABS: URINE BACTERIA OCC /hpf; URINE EPITHELIAL CELLS 0 - 2 /hpf (0-5); URINE RBC 0 - 2 /hpf (0-2); URINE WBC 0 - 2 /hpf (0-6)
[2019-04-22 23:24] LABS: BARBITURATES, UR NEGATIVE (NEGATIVE); BENZODIAZEPINES, UR NEGATIVE (NEGATIVE); OPIATES, UR POSITIVE (NEGATIVE); PHENCYCLIDINE, UR NEGATIVE (NEGATIVE)
[2019-04-23 06:09] VITALS: O2SAT 95
[2019-04-23] MEDS ORDERED: Albuterol HFA 90 mcg/actuation (8 g) INH PRN (08:49)
[2019-04-23] MEDS ORDERED: Albuterol 0.083% Inhal Sol (2.5 mg/3 mL) UD INH PRN (08:55)
[2019-04-23] MEDS ORDERED: Levothyroxine 50 MCG TAB PO SCH (10:00)
[2019-04-23] MEDS: Levothyroxine 150 MCG TAB PO SCH (10:35)
[2019-04-23 11:07] LABS: ALB/GLOB RATIO 0.9 (1.1-1.8); ALBUMIN 3.7 g/dL (3.0-4.8); ALT/SGPT 21 U/L (7-56); AST/SGOT 25 U/L (14-36); BLOOD UREA NITROGEN 8 mg/dL (7-21); GFR NON-AFRICAN AMERICAN > 60
--- NOTE | 2019-04-23 11:38 | RAD ---
Date of service: 04/22/2019 HISTORY: admission COMPARISON: 07/04/2018. FINDINGS: LUNGS: The lungs are well inflated and clear. PLEURA: No pleural effusions or pneumothorax. CARDIOVASCULAR: The heart is normal in size. No aortic atherosclerotic calcifications present. OSSEOUS STRUCTURES: Within normal limits for the patient's age. VISUALIZED UPPER ABDOMEN: Normal. OTHER FINDINGS: None. IMPRESSION: No active pulmonary disease.
--- NOTE | 2019-04-23 11:46 | CARD ---
APPROVED REPORT Date of service: 04/22/2019 EKG Measurement Heart [id number] MD [id number] <Conclusion> Normal sinus rhythm Normal ECG
--- NOTE | 2019-04-23 19:10 | HP ---
DATE OF EXAM: 04/23/2019 HISTORY OF PRESENT ILLNESS: I have known her from the psychiatric department. She is a 44-year-old white female who presents to the emergency room with substance abuse. She is morbidly obese with a past medical history of asthma, abdominal surgery, lots of edema, gait instability in the process of looking for bariatric surgery. She was just in the psychiatric floor. SOCIAL HISTORY: Lots of substance abuse, still smokes. No drinking. Theoretically she has been clean for 3.5 years until the other day. ALLERGIES: NO KNOWN DRUG ALLERGIES. MEDICATIONS: She is on Neurontin, Synthroid, Lasix, Trental, and Xanax. REVIEW OF SYSTEMS: She is just very tired. No energy. Worried about withdrawals. No acute vision or hearing changes. No sore throat. No neck pain. No chest pain or palpitations. No shortness of breath or cough. No abdominal pain, nausea, vomiting, constipation, or diarrhea, although earlier she did feel nauseous. Extremities are very swollen, her whole body, the arms and legs are swollen. I do not think she has been taking her Lasix or other medications for the past few days. PHYSICAL EXAMINATION: GENERAL: Not a good historian at this time. VITAL SIGNS: There is a 98 temp, 72 pulse, 18 respiratory rate, 121/57 blood pressure and 92% O2 sat. HEENT: Head is atraumatic and normocephalic. Extraocular muscles intact. Throat is dry. NECK: Supple. No meningeal signs. HEART: Regular rate. LUNGS: Decreased breath sounds, but no wheezes, rhonchi or rales. ABDOMEN: Morbidly, morbidly obese, soft and nontender. Positive bowel sounds. No guarding. No rebound. No CVA tenderness. EXTREMITIES: At least +2 to +3 pitting edema over 4 of bilateral lower extremities, even her hands are swollen and her wrists. She is definitely much more swollen than the last time I saw her, I will put her on Lasix IV. LABORATORY DATA: She had blood tests done. She has a 11.8 white count, 14.7 hemoglobin, 45.1 hematocrit with a 290 platelets. Sodium 138, potassium 3.7, BUN 10, creatinine 0.5, GFR is greater than 60, sugar is 166, calcium is 8.6, magnesium 1.8, total bili is 0.2, AST is 25, ALT is 23, alk phos is 89, total creatinine kinase is less than 20, total protein is 7.8 and albumin is 3.8. Urine is negative, negative for . She has positive opiates in her urine drug screen. ASSESSMENT AND PLAN: She has a consult with Dr. Cox, the psychiatrist. I will put her on Lasix IV 40 mg. I will put her back on her trazodone, her Neurontin and Synthroid. So, I will put her on a heart-healthy diet. She is presently now on observation level of care. I will see if Psychiatry would not mind taking her up to the Psychiatry floor. I think after a dose of Lasix IV she might feel a lot better physically and would not be as swollen. She is here for an overdose and also depression and low congestive heart failure. Ismael Jacobo DO
--- NOTE | 2019-04-23 20:16 | CON ---
DATE: 04/22/2019 HISTORY OF PRESENT ILLNESS: The patient is a 44-year-old female with not known previous psychiatric history. The patient has a history of being admitted to [facility] in June 2018 for opioid dependence in detox unit. This time, the patient was admitted on the medical side status post overdose. Emergency room notes is not there yet to find out what actually happened. The patient was seen and examined today. The previous history reviewed, discussed with the nursing staff as well as Meter Supervisor. As per the patient, she was clean and sober for 2 weeks, and the patient relapsed on heroin yesterday. The patient reported that most likely dose was high on for her because she was not using any drugs for 2 weeks. The patient reported that she does not remember what happened but remembered that she passed out. The patient adamantly denied that she wanted to kill herself and denied that that was an intentional overdose. The patient reported that she was not depressed. She denied that she was feeling hopeless or helpless. The patient reported that she was feeling worthless because she relapsed on heroin. The patient reported that she has a lot of problems with her boyfriend who is grandiose and narcissistic; this is the patient's statement. The patient reported that he has 6 years of sobriety and he is "too much for me." The patient denied any physical abuse. Denied any emotional abuse. The patient has three kids. Two of them are adults and one 9-year-old son, as per the patient, lives with her. The patient reported that at the present moment, the patient is with her relatives. The patient denied hearing voices. The patient denied seeing things. The patient denied paranoid ideation. The patient does not appear to be psychotic. The patient's previous history reviewed. As per history, the patient was referred to [facility] back in June 2018. The patient never followed up with them. The patient reported history of being in a [facility], and the patient is interested for referrals. As per history, the patient started to use drugs at the age of 22. The patient has history of using cocaine as well as heroin in the past. No history of suicidal attempts. PHYSICAL EXAMINATION: VITAL SIGNS: Reviewed. Temperature 97.9, pulse is 65, blood pressure 130/79, respiration 26 and saturation is 95. MEDICATIONS: Reviewed. The patient is on albuterol. Xanax was started by medical team. Lasix, Neurontin, Synthroid and trazodone. LABORATORY DATA: Reviewed. White blood cells is mildly elevated. Chemistry reviewed. Urinalysis reviewed. Toxicology reviewed. Opioids positive. MENTAL STATUS EXAM: The patient presented to be alert, oriented, pleasant, cooperative. Mood described as okay. Affect was constricted. Thought process seems to be coherent and goal-directed thought. Thought content, the patient denied visual, auditory, or tactile hallucinations. Denied paranoid ideation. The patient denied thoughts of harming herself or others. Denied intent or plan. The patient adamantly denied that she intentionally overdosed on drugs. The patient denied any plan or intent to kill herself. IMPRESSION: Opioid use disorder, rule out polysubstance abuse and dependence. PLAN: The patient denied any thoughts of harming herself or others. The patient denied any intent or plan. The patient reported that she would be interested to be referred for outpatient programs such as [facility] as well as [facility]. The patient does not want to be referred to any methadone clinic or Suboxone clinic because "I don't need to use drugs in order to get rid of drugs." Meter Supervisor involved. This caption writer is concerned about the patient's son safety because the patient overdosed, and the patient's son is 9 years old. Meter Supervisor involved. Should you have any questions give me a call back. At this point, there is no acute psychiatric issues going on. This caption writer will sign off. Brooke Padron MD
[2019-04-24 00:54] VITALS: RESP 20; TEMP 97.8
[2019-04-24 06:36] VITALS: BP 113/79; PULSE 69
[2019-04-24 07:09] LABS: HEMOGLOBIN 14.9 g/dL (12.0-16.0); MEAN CELL VOLUME 86.6 fl (80.0-105.0); MEAN CORPUSCULAR HEMOGLOBIN 27.7 pg (25.0-35.0); MEAN PLATELET VOLUME 9.6 fl (7.0-11.0); RBC 5.38 10^6/uL (3.5-6.1); RED CELL DISTRIBUTION WIDTH 14.9 % (11.5-14.5); WHITE BLOOD COUNT 9.1 10^3/uL (4.5-11.0)
[2019-04-24 07:40] LABS: ALBUMIN 3.9 g/dL (3.0-4.8); ALT/SGPT 22 U/L (7-56); AST/SGOT 21 U/L (14-36); BLOOD UREA NITROGEN 8 mg/dL (7-21); GFR NON-AFRICAN AMERICAN > 60
[2019-04-24] MEDS: Levothyroxine 150 MCG TAB PO SCH (09:31)
--- NOTE | 2019-04-24 11:08 | CP.PCM.PCO ---
Physician Communication Note - Physician Communication Note Physician Communication Note: pt was discharged
--- NOTE | 2019-04-25 02:18 | DS ---
HISTORY OF PRESENT ILLNESS: She came in with an overdose. She told me it was foolish, she said it was a mistake, it was not intentional. She is not going to do drugs anymore. She promises me again and was called because she has a 9-year-old son and that is an eye platform power technician for her. I think she understands what is going on. She does understand that she needs to see a psychiatrist. Hopefully, she will followup with Dr. Porras in the psych clinic. She is going to go home on albuterol and Desyrel. She is going to be on the metformin 500 mg twice a day now for diabetes; Lasix, Neurontin, Pepcid, levothyroxine, and Xanax. She is eating well. She is walking well. PHYSICAL EXAMINATION: VITAL SIGNS: She has a 97.8 temperature, 69 pulse, 115/79 blood pressure, 20 respiratory rate, and 95% O2 saturation on room air. HEENT: Head is atraumatic and normocephalic. HEART: Regular rate. LUNGS: Decreased breath sounds. ABDOMEN: Soft, morbidly obese, and nontender. Positive bowel sounds. EXTREMITIES: Trace edema, but better. LABORATORY DATA: She had a 138 sodium, potassium 3.9, BUN 8, creatinine 0.4, GFR is greater than 60, and sugar is 178, she will be on metformin now. Calcium is 9, total bili is 0.3, AST is 25, ALT is 21, alk phos is 81, and total protein 7.6. A 9.1 white count, 14.9 hemoglobin, 46.6 hematocrit with a 312 platelets. ASSESSMENT AND PLAN: She did have opiates in her system. She was not . She is discharged. She should follow up with Dr. Porras and Dr. Jacobo in the next week. I will call the prescriptions into the pharmacy this afternoon and she is discharged. She is here for an overdose. Also she is morbidly obese, congestive heart failure, depression, and a little diabetes. Carolyn Jacobo DO [facility]
== END 2019-04-24 10:29 | disposition home or self-care (01) ==
LOC: ED 18:03 → INTOOBSV 21:13 → ERH 21:13 → 2RNO 23:34
PROVIDERS: ADMIT Family Medicine; ATTEND Family Medicine
DX: T40.1X1A Poisoning by heroin, accidental (unintentional), initial encounter (principal); F32.89 Other specified depressive episodes; F11.20 Opioid dependence, uncomplicated; E66.01 Morbid (severe) obesity due to excess calories; Z68.43 Body mass index [BMI] 50.0-59.9, adult; E11.9 Type 2 diabetes mellitus without complications; E78.5 Hyperlipidemia, unspecified; J45.909 Unspecified asthma, uncomplicated; I11.0 Hypertensive heart disease with heart failure; I50.9 Heart failure, unspecified; F17.200 Nicotine dependence, unspecified, uncomplicated; Z79.84 Long term (current) use of oral hypoglycemic drugs; Z79.890 Hormone replacement therapy
CPT/HCPCS: 36415; 71045; 80053; 80320; 80324; 80329; 80345; 80346; 80349; 80353; 80358; 80361; 81001; 81025; 82550; 83735; 83992; 84703; 85025; 85027; 93005; 96360; 99285; G0378; J1940; J7030